=== PATIENT | female | born 1965 | race Caucasian/White ===

== ENCOUNTER → 2016-08-02 | Outpatient (CLI) | payer OTHER, BC ==
[~2016-08-02] MED LIST: ALPRAZOLAM0.25 M2 PO; AMLO5TAB PO; APAP/BUTALBITAL1 TA1 PO; ASPIRIN325 M1 PO; DELESTROGEN IM; FLUOXETINE HCL40 MG PO; FLUOXETINE HYDR20 MG PO; LOSARTAN POTASS1 TA3 PO; METOPROLOL SUC100 M2 PO; MINIVELLE0.05 MG/24 TD; PANTOPRAZOLE SO40 M1 PO; SKELAXIN 800MG800 MG PO; TAMIFLU 75MG CA75 MG PO; TRILIPIX45 MG PO
--- NOTE | 2016-08-02 13:15 | RADIOLOGY REPORT PS360 ---
EXAM: LUMBAR SPINE 5 VIEWS HISTORY: LUMBAGO WITH SCIATICA, RIGHT SIDE ORDERING PHYSICIAN: Tom Yepez MD PATIENT AGE: 50 years FINDINGS: There is 3 mm anterolisthesis of L4 on L5. Mild degenerative disc disease also present at L4-5 with endplate sclerosis and hypertrophic change. Endplate osteophytes are present from L2 to L5. Grandmother with mild loss of height anteriorly of L1. This did have a similar appearance on older exam of 03/19/2009. No acute fracture or dislocation. No lytic or blastic change. IMPRESSION: 1. Mild to moderate degenerative disc disease with anterolisthesis at L4 on L5 which is developed since 03/19/2009.
== END ==
LOC: RAD 12:26
DX: M54.41 Lumbago with sciatica, right side (principal)

== ENCOUNTER → 2017-05-08 | Outpatient (CLI) | payer OTHER, BC ==
--- NOTE | 2017-05-16 13:01 | RADIOLOGY REPORT PS360 ---
DIG MAMM-SCREEN UNA W/CAD CAD Screening ORDERING PHYSICIAN : Bharathi Rosas MD PATIENT AGE: 51 years GENDER: Female COMPARISON: Previous mammograms: April 2016, 2014. March 2014, 2012, 2011. Also 2009 INDICATION: Routine screening has taking female hormones the past year. Note history of estrogen on previous studies as well TECHNIQUE: Standard CC and MLO images were obtained. R2 CAD reviewed. FINDINGS: There is slight accentuation of the fibroglandular elements throughout both right and left breast compared to previous studies, which likely reflects the exogenous hormone effect . This can produce some difficulty with mammography but I believe all areas seen today were present previously and proportionately accentuated A would note that the patient states was taking hormones last year has the diagnosis increased or changed since that time? RIGHT BREAST: Asymmetric areas of linear tissue at the superior breast and upper-outer quadrant right breast is stable similar to 2010. Any towards the lateral upper outer quadrant perhaps mildly accentuated but is low density and favor merely glandular tissue at this point. LEFT BREAST: Previous biopsy superior left breast 12:00 similar to previous studies. IMPRESSION:. 1. accentuation of fibroglandular elements throughout both breasts bilaterally.- Most likely reflecting exogenous hormone affect. There is no discrete Area of greater concern than another.. 2. Follow-up in not over one year recommended. Would Encouraged & emphasized self breast exam along with follow-up in not over one year for ongoing evaluation given this appearance... . BI-RADS CATEGORY: 2_Benign RECOMMENDED FOLLOWUP: 12M 12 MONTH FOLLOW-UP (A letter has been sent to the patient regarding results of the study.)
== END ==
LOC: RAD 10:30
DX: Z12.31 Encounter for screening mammogram for malignant neoplasm of breast (principal)
CPT/HCPCS: G0202